=== PATIENT | male | born 1950 | race Caucasian/White ===

== ENCOUNTER → 2018-04-01 | Outpatient (CLI) | payer MEDICARE, OTHER | END | disposition home or self-care (01) | LOC: PLD 10:21 → LAB SHORT 10:21 | DX: L30.9 Dermatitis, unspecified (principal) | CPT/HCPCS: 88305; 88312 ==

== ENCOUNTER → 2021-10-31 | Outpatient (CLI) | payer MEDICARE, OTHER | END | disposition home or self-care (01) | LOC: PLD 14:43 → LAB SHORT 14:43 | DX: R23.4 Changes in skin texture (principal); L81.4 Other melanin hyperpigmentation | CPT/HCPCS: 88305; 88312 ==

== ENCOUNTER 2025-01-04 10:41 | Emergency (ER) | payer OTHER, MEDICARE ==
[~2025-01-04] VITALS: Ht 177.8 cm; Wt 86.2 kg
[2025-01-04 12:00] VITALS: BP 159/89
== END 2025-01-04 12:15 | disposition home or self-care (01) ==
LOC: ER 10:41
DX: S80.12XA Contusion of left lower leg, initial encounter (principal); W01.0XXA Fall on same level from slipping, tripping and stumbling without subsequent striking against object, initial encounter
CPT/HCPCS: 73590; 99283-25

== ENCOUNTER 2025-04-22 10:16 | Day surgery (SDC) | payer MEDICARE, OTHER ==
[~2025-04-22] VITALS: Ht 177.8 cm; Wt 85.3 kg
[~2025-04-22 10:16] MED LIST: Balanced Salt Epinephrine Irrigation Solution 500 mL IR SCH; Moxifloxacin HCL 0.5 MG/0.1 ML 0.4MLSYR LEFTEYE SCH; Ondansetron 4 MG SoluTab MM PRN; PHENYLEPHRINE\\TROPICAMIDE\\TETRACAINE OPHTHALMIC DILATING SOLN LEFTEYE PRN; Povidone-Iodine 450 DROP/30 ML Solution LEFTEYE SCH; Povidone-Iodine 450 DROP/30 ML Solution ONE; Tetracaine HCl/Pf 0.5% Opth Soln 4 ml ONE; Triamcinolone Inj Susp 40 MG / ML 1ML Vial INJ SCH; Triamcinolone Inj Susp 40 MG / ML 1ML Vial ONE
--- NOTE | 2025-04-22 11:03 | NUR ---
04/22/25 1103 Agnes Mishra 1101: INITIAL ANXIETY 01/26 PER PT REPORT. 10 MG VALIUM PO GIVEN PER ORDERS. PULSE OX ON FINGER, CALL LIGHT IN HAND. 1103: TETRACAINE PER ORDERS
[2025-04-22] MEDS ORDERED: LISI20 PO (11:04)
[2025-04-22] MEDS ORDERED: PLAVIX75 MG PO (11:04)
--- NOTE | 2025-04-22 11:55 | NUR ---
04/22/25 1155 Dipika Pickens 1152 BP:137/75 HR:66 O2:98% RESP:18
[2025-04-22 12:11] VITALS: BP 145/79
== END 2025-04-22 12:32 | disposition home or self-care (01) ==
LOC: ORSCSDS 10:16
PROVIDERS: Ophthalmology
PROC: 08RK3JZ Replacement of Left Lens with Synthetic Substitute, Percutaneous Approach (ICD-10-PCS; principal; 2025-04-22 12:30)
DX: H25.812 Combined forms of age-related cataract, left eye (principal); Z79.02 Long term (current) use of antithrombotics/antiplatelets; Z79.899 Other long term (current) drug therapy
CPT/HCPCS: A9270; J3301; V2632

== ENCOUNTER 2025-04-28 07:30 | Day surgery (SDC) | payer MEDICARE, OTHER ==
[~2025-04-28] VITALS: Ht 177.8 cm; Wt 85.0 kg
[~2025-04-28 07:30] MED LIST changes: +LISI20 PO; -Moxifloxacin HCL 0.5 MG/0.1 ML 0.4MLSYR LEFTEYE SCH; +Moxifloxacin HCL 0.5 MG/0.1 ML 0.4MLSYR RIGHTEYE SCH; -PHENYLEPHRINE\\TROPICAMIDE\\TETRACAINE OPHTHALMIC DILATING SOLN LEFTEYE PRN; +PHENYLEPHRINE\\TROPICAMIDE\\TETRACAINE OPHTHALMIC DILATING SOLN RIGHTEYE PRN; +PLAVIX75 MG PO; -Povidone-Iodine 450 DROP/30 ML Solution LEFTEYE SCH; +Povidone-Iodine 450 DROP/30 ML Solution RIGHTEYE SCH
--- NOTE | 2025-04-28 08:01 | NUR ---
04/28/25 0801 Radha Hou PT STATES ANXIETY LEVEL IS 6-7/10 IN PREOP PT IS ON CONTINUOUS PULSE OX MONITORING
--- NOTE | 2025-04-28 08:53 | NUR ---
04/28/25 0853 YAA BILLINGSLEY T/O PROCEDURE. 133/82 HR 64 O2 98%
[2025-04-28 09:06] VITALS: BP 137/78
== END 2025-04-28 09:20 | disposition home or self-care (01) ==
LOC: ORSCSDS 07:30
PROVIDERS: Ophthalmology
PROC: 08RJ3JZ Replacement of Right Lens with Synthetic Substitute, Percutaneous Approach (ICD-10-PCS; principal; 2025-04-28 09:00)
DX: H25.811 Combined forms of age-related cataract, right eye (principal); Z96.1 Presence of intraocular lens; G45.3 Amaurosis fugax; Z79.02 Long term (current) use of antithrombotics/antiplatelets; Z79.899 Other long term (current) drug therapy; Z87.891 Personal history of nicotine dependence
CPT/HCPCS: A9270; J3301; V2632